=== PATIENT | male | born 1960 | race Caucasian/White ===

== ENCOUNTER → 2017-05-19 | Outpatient (CLI) | payer OTHER | LOC: CIMAGING 09:47 → EDSTATUS 09:50 → CIMAGING 09:51 | PROVIDERS: ATTEND Family Medicine | DX: M25.851 Other specified joint disorders, right hip (principal); M25.852 Other specified joint disorders, left hip; M17.0 Bilateral primary osteoarthritis of knee | CPT/HCPCS: 73502-PO ==

== ENCOUNTER 2017-12-30 11:32 | Emergency (ER) | payer OTHER ==
[2017-12-30 11:39] VITALS: TEMP 98.2
--- NOTE | 2017-12-30 11:48 | EDPHY ---
H & P Stated Complaint: pill stuck in throat Time Seen by Provider: 12/30/17 11:37 HPI/ROS: CHIEF COMPLAINT: Pill stuck in breathing past HISTORY OF PRESENT ILLNESS: This is a healthy 57-year-old male who feels as if he has a pill stuck in his breathing passage. He swallowed an Osteo Biflex pill over an hour ago, but believes that it entered his trachea rather than his esophagus. He has been coughing since. He is aware of some discomfort in his upper mid chest and he is also aware some noisy breathing. He is not short of breath, but deep breathing sets off coughing. He is swallowing without difficulty. REVIEW OF SYSTEMS: No recent fever, upper respiratory infection, vomiting. Past surgical history: Hip replacement Social history: Works for the [employer]. . General Appearance: Alert. Vital signs reviewed. Dry frequent cough. ENT, Mouth: Mucous membranes are moist, no oropharyngeal erythema or edema. Neck: No lymphadenopathy. Trachea midline. Respiratory: Lungs are clear to auscultation; no wheezes, rales, or rhonchi. Cardiovascular: Regular rate and rhythm; no murmur, rub, or gallop. Gastrointestinal: Abdomen is soft and nontender, no masses or organomegaly, bowel sounds normal. Skin: Warm and dry, no rashes on exposed skin, normal color. Neurological: Alert and oriented. Moving all four extremities easily and equally. Psychiatric: Normal affect. - Personal History Current Tetanus/Diphtheria Vaccine: Unsure Current Tetanus Diphtheria and Acellular Pertussis (TDAP): Unsure - Medical/Surgical History Hx Asthma: No Hx Chronic Respiratory Disease: No Hx Diabetes: No Hx Cardiac Disease: No Hx Renal Disease: No Hx Cirrhosis: No Hx Alcoholism: No Hx HIV/AIDS: No Hx Splenectomy or Spleen Trauma: No Other PMH: hip replacement - Social History Smoking Status: Never smoked Constitutional: Initial Vital Signs Temperature (C) 36.8 C 12/30/17 11:37 Heart Rate 92 12/30/17 11:37 Respiratory Rate 18 12/30/17 11:37 Blood Pressure 113/112 H 12/30/17 11:37 O2 Sat (%) 95 12/30/17 11:37 O2 Delivery Mode Room Air Allergies/Adverse Reactions: No Known Allergies Allergy (Unverified 12/30/17 11:37) Home Medications: Medication Instructions Recorded NK [No Known Home Meds] 12/30/17 Medical Decision Making ED Course/Re-evaluation: Shortly after my evaluation he had an episode of paroxysmal coughing, which brought up the pill. I was able to visualize it. It appears to be the entire length of the pill with a slightly narrowed girth. It is a large pill, almost 1 in long and oval. I spoke with Dr. Cha who is plant protection supervisor for pulmonology. He recommends no further treatment at this time. If the patient has persistent coughing over the next 24 hr he should be re-evaluated and considered for bronchoscopy for retrieval of pill fragments. Patient and his were comfortable with the above plan. It does sound assist this was an aspirated tracheal foreign body although the possibility of an esophageal foreign body also exists. He was able to manage his secretions without difficulty and I think esophageal foreign body is less likely. He has no evidence of upper respiratory infection. He is not hypoxic and I do not suspect bronchospasm. Departure - Departure Disposition: Home, Routine, Self-Care Clinical Impression: Asphyxiation, foreign body, trachea Qualifiers: Encounter type: initial encounter Qualified Code(s): T17.400A - Unspecified foreign body in trachea causing asphyxiation, initial encounter Condition: Good Instructions: Direct Laryngoscopy (DC) Additional Instructions: If you have continued or worsening cough or if you feel short of breath over the next 24 hr you should be re-evaluated, to be certain that you do not have retained pill fragments in your trachea. Referrals: Hayder Schaefer DO [Primary Care Provider] - As per Instructions
[2017-12-30 12:04] VITALS: BP 127/90; PULSE 73; RESP 16; O2SAT 97
== END 2017-12-30 11:58 | disposition home or self-care (01) ==
LOC: CED 11:32
DX: T17.400A Unspecified foreign body in trachea causing asphyxiation, initial encounter (principal); X58.XXXA Exposure to other specified factors, initial encounter